=== PATIENT | female | born 1950 | race Caucasian/White ===

== ENCOUNTER 2017-09-25 17:13 | Emergency (ER) | payer MEDICARE, OTHER ==
[2017-09-25] MEDS: KETOROLAC 30 MG INJ IM (18:03)
== END 2017-09-25 18:52 | disposition home or self-care (01) ==
LOC: FTE 17:13
DX: M54.6 Pain in thoracic spine (principal); I10 Essential (primary) hypertension; E66.9 Obesity, unspecified
CPT/HCPCS: 71045; 72072; 93005; 96372; 99284-25